=== PATIENT | male | born 1990 ===

== ENCOUNTER 2018-03-01 13:02 | Emergency (ER) | payer SELFPAY ==
[2018-03-01 13:24] LABS: Absolute Lymphocytes (CBC) 4.1 K/uL (0.7-4.9); Absolute Monocytes 0.4 K/uL (0.1-1.3); Absolute Neutrophil 1.8 K/uL (1.8-8.0); Basophils % 0.7 % (0-1.3); Eosinophils % 1.8 % (0-4.4); Lymphocytes % 64.1 % (15.3-44.8); MCH 30.1 pg (27.0-35.0); MCV 87.5 fL (80-100); MPV 8.5 fL (7.6-11.3); Monocytes % 6.1 % (3.3-12.3); RBC Red Blood Cell Count 5.25 M/uL (4.33-5.43)
[2018-03-01] MEDS ORDERED: NA CHLORIDE 0.9% 1,000 ML ONE (13:30)
[2018-03-01 13:37] LABS: Protime INR 0.97
[2018-03-01 13:56] LABS: ALT/SGPT 25 U/L (12-78); AST/SGOT 24 U/L (15-37); Alkaline Phosphatase 92 U/L (45-117); BUN Blood Urea Nitrogen 8 mg/dL (7-18); Bicarbonate 24 mmol/L (21-32); Bilirubin Direct 0.2 mg/dL (0-0.2); Bilirubin Total 0.9 mg/dL (0.2-1.0); Glucose Level 101 mg/dL (74-106); Potassium 3.3 mmol/L (3.5-5.1); Protein, Total 7.6 g/dL (6.4-8.2); Sodium Level 143 mmol/L (136-145)
[2018-03-01 14:59] LABS: Blood Morphology Comment NOT SEEN (NOT SEEN); Platelet Estimate ADEQ
--- NOTE | 2018-03-01 15:20 | EDPHYS ---
Physician Documentation [facility] Name: Khari Campbell Age: 28 yrs Sex: Male : 1990 Arrival Date: 03/01/2018 Time: 13:04 Bed 3 Private MD: ED Physician Sanjay Pablo HPI: 03/02 09:23 This 28 yrs old Unknown Male presents to ER via EMS with complaints of Altered Mental kdr Status - Synthetic Use. 09:23 The patient presents with agitation, confusion, decreased mental status, decreased kdr responsiveness, disorientation. Onset: The symptoms/episode began/occurred suddenly, just prior to arrival, at an unknown time. Possible causes: drug use, Synthetic. Associated signs and symptoms: Pertinent positives: agitation, combativeness, confusion. Current symptoms: In the emergency department the patient's symptoms are unchanged from the initial presentation. Patient's baseline: Neuro: alert and fully oriented, Motor: no deficits, Ambulation: walks without assistance, Speech: normal for age. It is unknown whether or not the patient has had similar symptoms in the past, The patient states that this is the first time he has used synthetic marijuana . The patient has not recently seen a physician. Historical: - Allergies: 03/01 13:12 Unable to obtain; ph - Home Meds: 13:12 Unable to obtain [Active]; ph - PMHx: 13:12 Unable to obtain; ph - PSHx: 13:12 Unable to obtain; ph - Immunization history:: Adult Immunizations unknown. - Social history:: Smoking status: Patient uses tobacco products, smokes one pack cigarettes per day. chewing tobacco, Patient uses street drugs, Synthetic Marijuana . - Ebola Screening: : No symptoms or risks identified at this time. ROS: 03/02 09:23 Constitutional: The patient is a poor historian in his current condition kdr Unable to obtain ROS due to altered mental status, patient distress, patient being uncooperative. Exam: 09:23 Constitutional: This is a well developed, well nourished patient who is awake, alert, kdr and in moderate distress. Head/Face: Normocephalic, atraumatic. Eyes: Pupils equal round and reactive to light, extra-ocular motions intact. Lids and lashes normal. Conjunctiva and sclera are non-icteric and not injected. Cornea within normal limits. Periorbital areas with no swelling, redness, or edema. Neck: Trachea midline, no thyromegaly or masses palpated, and no cervical lymphadenopathy. Supple, full range of motion without nuchal rigidity, or vertebral point tenderness. No Meningismus. Chest/axilla: Normal chest wall appearance and motion. Nontender with no deformity. No lesions are appreciated. Respiratory: Lungs have equal breath sounds bilaterally, clear to auscultation and percussion. No rales, rhonchi or wheezes noted. No increased work of breathing, no retractions or nasal flaring. Abdomen/GI: Soft, non-tender, with normal bowel sounds. No distension or tympany. No guarding or rebound. No evidence of tenderness throughout. Back: No spinal tenderness. No costovertebral tenderness. Full range of motion. Skin: Warm, dry with normal turgor. Normal color with no rashes, no lesions, and no evidence of cellulitis. MS/ Extremity: Pulses equal, no cyanosis. Neurovascular intact. Full, normal range of motion. 09:23 Cardiovascular: Rate: tachycardic, Rhythm: regular, Pulses: no pulse deficits are appreciated, Heart sounds: normal, Edema: is not appreciated, JVD: is not appreciated. Vital Signs: 03/01 13:13 BP 122 / 83; Pulse 126; Resp 20; Temp 98.0(TE); Pulse Ox 98% on R/A; Weight 58 kg; Pain ph 0/10; 13:48 BP 120 / 78; Pulse 104; Resp 18; Pulse Ox 99% on R/A; ph 14:38 BP 114 / 74; Pulse 97; Resp 18; Pulse Ox 95% ; sv 15:29 BP 104 / 63; Pulse 98; Resp 16; Pulse Ox 99% ; sv MDM: 15:20 Patient medically screened. kdr 03/02 09:23 Data reviewed: vital signs, nurses notes, lab test result(s), radiologic studies. kdr Counseling: I had a detailed discussion with the patient and/or guardian regarding: the historical points, exam findings, and any diagnostic results supporting the discharge/admit diagnosis, lab results, radiology results, the need for outpatient follow up. 03/01 13:10 Order name: Acetaminophen kdr 03/01 13:10 Order name: Basic Metabolic Panel kdr 03/01 13:10 Order name: CBC with Diff kdr 03/01 13:10 Order name: ETOH Level [facility] 03/01 13:10 Order name: Hepatic Function [facility] 03/01 13:10 Order name: PT-INR [facility] 03/01 13:10 Order name: Ptt, Activated [facility] 03/01 13:10 Order name: Salicylate [facility] 03/01 13:10 Order name: EKG; Complete Time: 13:11 [facility] 03/01 13:10 Order name: EKG - Nurse/Tech; Complete Time: 13:36 [facility] 03/01 14:44 Order name: Manual Differential [facility] 03/01 13:10 Order name: IV Saline Lock; Complete Time: 13:21 [facility] 03/01 13:10 Order name: Labs collected and sent; Complete Time: 13:20 kdr Administered Medications: 03/01 13:35 Drug: NS 0.9% 1000 ml Route: IV; Rate: 1 bolus; Site: left forearm; ph 15:39 Follow up: Response: No adverse reaction; IV Status: Completed infusion ph Disposition: 03/01/18 15:20 Discharged to Home. Impression: Altered mental status, unspecified, Other psychoactive substance abuse. - Condition is Stable. - Discharge Instructions: Confusion, Substance Use Disorder. - Medication Reconciliation Form, Thank You Letter form. - Follow up: Private Physician; When: 2 - 3 days; Reason: If symptoms return, Further diagnostic work-up, Recheck today's complaints, Continuance of care, Re-evaluation by your physician. - Problem is new. - Symptoms have improved. Signatures: Dispatcher [employer] [facility] Sanjay Pablo MD MD kdr Tara Nelson RN RN ph Corrections: (The following items were deleted from the chart) 14:44 13:26 CBC Smear Scan ordered. [facility] 15:40 15:20 03/01/2018 15:20 Discharged to Home. Impression: Altered mental status, ph unspecified; Other psychoactive substance abuse. Condition is Stable. Forms are Medication Reconciliation Form, Thank You Letter, Antibiotic Education, Prescription Opioid Use. Follow up: Private Physician; When: 2 - 3 days; Reason: If symptoms return, Further diagnostic work-up, Recheck today's complaints, Continuance of care, Re-evaluation by your physician. Problem is new. Symptoms have improved. kdr
--- NOTE | 2018-03-01 15:20 | ER ---
Nurse's Notes [facility] Name: Khari Campbell Age: 28 yrs Sex: Male : 1990 Arrival Date: 03/01/2018 Time: 13:04 Bed 3 Private MD: Diagnosis: Altered mental status, unspecified;Other psychoactive substance abuse Presentation: 03/01 13:05 Presenting complaint: EMS states: Pt found on ground beside road by bystanders, pt ph responsive upon EMS arrival, admits to using synthetic, denies pain or injury, BP 148/78 HR 150s, Spo2 98%, pt cooperative w/ EMS but did become agitated and tried to throw things. Transition of care: patient was not received from another setting of care. Onset of symptoms was March 01, 2018. Risk Assessment: Do you want to hurt yourself or someone else? Patient reports no desire to harm self or others. Initial Sepsis Screen: Does the patient meet any 2 criteria? No. Patient's initial sepsis screen is negative. Does the patient have a suspected source of infection? No. Patient's initial sepsis screen is negative. Care prior to arrival: None. 13:05 Method Of Arrival: EMS: [facility] ph 13:05 Acuity: ARIELA 2 ph Triage Assessment: 13:15 General: Appears in no apparent distress. comfortable, slender, Behavior is Pt ph alternating between calm and cooperative and agitated. Pain: Denies pain. Neuro: Level of Consciousness is awake, alert, obeys commands, Oriented to person, place, situation. Cardiovascular: Denies chest pain, nausea, palpitations, shortness of breath, Capillary refill < 3 seconds in bilateral fingers Patient's skin is warm and dry. Rhythm is sinus tachycardia. Respiratory: Airway is patent Respiratory effort is even, unlabored, Respiratory pattern is regular, symmetrical. GI: No signs and/or symptoms were reported involving the gastrointestinal system. Derm: Skin is intact, Skin is pink, warm \T\ dry. Musculoskeletal: Circulation, motion, and sensation intact. Range of motion: intact in all extremities. Historical: - Allergies: 13:12 Unable to obtain; ph - Home Meds: 13:12 Unable to obtain [Active]; ph - PMHx: 13:12 Unable to obtain; ph - PSHx: 13:12 Unable to obtain; ph - Immunization history:: Adult Immunizations unknown. - Social history:: Smoking status: Patient uses tobacco products, smokes one pack cigarettes per day. chewing tobacco, Patient uses street drugs, Synthetic Marijuana . - Ebola Screening: : No symptoms or risks identified at this time. Screenin:18 Abuse screen: Denies threats or abuse. Denies injuries from another. Nutritional ph screening: No deficits noted. Tuberculosis screening: No symptoms or risk factors identified. Fall Risk None identified. Assessment: 13:19 General: See triage assessment. ph 13:20 Reassessment: Pt belongings removed by security. ph 13:30 Reassessment: Patient appears in no apparent distress at this time. Patient and/or ph family updated on plan of care and expected duration. Pain level reassessed. Pt awake and alert, remains calm and cooperative w/ staff, given water per request and is tolerating well, HR decreased to 104 sinus tach. 14:30 Reassessment: Patient appears in no apparent distress at this time. Pt asleep w/ even, ph unlabored respirations, VSS, awakens easily. 15:01 Reassessment: Patient appears in no apparent distress at this time. Patient and/or ph family updated on plan of care and expected duration. Pain level reassessed. ERP at bedside to speak w/ pt. 15:38 Reassessment: Patient appears in no apparent distress at this time. Patient and/or ph family updated on plan of care and expected duration. Pain level reassessed. Patient is alert, oriented x 3, equal unlabored respirations, skin warm/dry/pink. Pt given bus pass and d/c home. Vital Signs: 13:13 BP 122 / 83; Pulse 126; Resp 20; Temp 98.0(TE); Pulse Ox 98% on R/A; Weight 58 kg; Pain ph 0/10; 13:48 BP 120 / 78; Pulse 104; Resp 18; Pulse Ox 99% on R/A; ph 14:38 BP 114 / 74; Pulse 97; Resp 18; Pulse Ox 95% ; sv 15:29 BP 104 / 63; Pulse 98; Resp 16; Pulse Ox 99% ; sv ED Course: 13:04 Patient arrived in ED. ph 13:09 Sanjay Pablo MD is Attending Physician. kdr 13:09 Initial lab(s) drawn, by me, sent to lab. Inserted saline lock: 20 gauge in left sv forearm, using aseptic technique. ,using aseptic technique. done by Annette SULLIVAN Blood collected. 13:10 Patient has correct armband on for positive identification. Bed in low position. Side sv rails up X2. athletic monitor on. Pulse ox on. NIBP on. Noise minimized. Lights dimmed. 13:11 Triage completed. ph 13:17 Arm band placed on. ph 13:18 Security present outside of room. ph 13:19 No provider procedures requiring assistance completed. ph 13:20 Tara Nelson, RN is Primary Nurse. ph 13:41 EKG done, by landscape management technician. reviewed by Sanjay Pablo MD. sm3 15:26 IV discontinued, intact, bleeding controlled, No redness/swelling at site. Pressure sv dressing applied. Administered Medications: 13:35 Drug: NS 0.9% 1000 ml Route: IV; Rate: 1 bolus; Site: left forearm; ph 15:39 Follow up: Response: No adverse reaction; IV Status: Completed infusion ph Outcome: 15:20 Discharge ordered by . kdr 15:26 Discharged to home ambulatory. sv 15:26 Condition: stable 15:26 Discharge instructions given to patient, Instructed on discharge instructions, follow up and referral plans. Demonstrated understanding of instructions, follow-up care. 15:40 Patient left the ED. ph Signatures: Heaven Ryan RN RN sv Rittger, Kevin, MD MD kdr Hall, Patricia, RN RN Codie Shoemaker 3
--- NOTE | 2018-03-02 07:09 | EKG ---
Test Date: 2018-03-01 Test Time: 13:37:51 Director Of Manufacturing: DHARA-Raymundo MEASUREMENT RESULTS: Intervals: Rate: 111 DE: 164 QRSD: 94 QT: 320 QTc: 435 [place]: P: 63 DE: 164 QRS: 100 T: 43 INTERPRETIVE STATEMENTS: Sinus tachycardia Rightward axis Borderline ECG No previous ECG available for comparison Electronically Signed On 03-02-18 07:07:13 WINDOWS DESKTOP SUPPORT by Antolin Sullivan
== END 2018-03-01 15:40 | disposition home or self-care (01) ==
LOC: ER 13:02
DX: F19.10 Other psychoactive substance abuse, uncomplicated (principal); F17.210 Nicotine dependence, cigarettes, uncomplicated
CPT/HCPCS: 36415; 80048; 80076; 80320; 80329; 85025; 85610; 85730; 93005; 96360; 96361; 99284; J7030